=== PATIENT | female | born 1995 | race Two or more races ===

== ENCOUNTER 2021-06-17 20:42 | Emergency (ER) | payer BC ==
[~2021-06-17] VITALS: Ht 160 cm; Wt 46.7 kg
[2021-06-17] MEDS ORDERED: ONDANSETRON HCL 4 MG/2 ML VIAL IV ONE (22:00)
[2021-06-17] MEDS ORDERED: MORPHINE SULFATE 4 MG/ML SYR/VIAL IV ONE (22:00)
[2021-06-17 22:19] LABS: Albumin 3.9 g/dL (3.4-5.0); BUN/Creatinine Ratio 13.1; Calcium 8.8 mg/dL (8.5-10.1); Potassium 3.7 mmol/L (3.5-5.1)
[2021-06-17 22:22] LABS: Bilirubin, Total 0.4 mg/dL (0.2-1.0); Total Protein 7.4 g/dL (6.4-8.2)
[2021-06-18 04:03] VITALS: BP 118/15
== END 2021-06-18 01:21 | disposition home or self-care (01) ==
LOC: ER 20:46
DX: O03.9 Complete or unspecified spontaneous abortion without complication (principal); Z3A.12 12 weeks gestation of pregnancy
CPT/HCPCS: 36415; 76801; 80053; 84702; 96374; 96375; 99284; J2270; J2405